=== PATIENT | female | born 1985 | race Caucasian/White ===

== ENCOUNTER 2018-12-03 23:03 | Inpatient (IN) | payer OTHER ==
[~2018-12-03] VITALS: Ht 170.2 cm; Wt 63.0 kg
--- NOTE | 2018-12-04 01:01 | PR ---
[facility] [address] [facility] [place], [place] [address] Signed Progress Notes IP Datetime Report Generated by CPN: 12/04/2018 01:01 PROGRESS NOTES: [id number] Impression: Normal progression of labor Procedures: Artificial ROM Plan: Continue present management; Anticipate Vaginal Delivery VITAL SIGNS: [id number] Vital Signs: Reviewed; Within Normal Limits EXAM: [id number] Dilatation: 9.0 Effacement: 90 Station: 0 Uterine Contractions: every 2-3 minutes MEMBRANES: [id number] Membrane Status: Ruptured Amniotic Fluid Color: Clear ROM Note: AROM without difficulty, small amount fluid seen, head well-applied to cervix Comments: Comfortable with Intrathecal anesthesia Fetus A: [id number] FHR Baseline: 130 Variability: Moderate 6-25bpm Accelerations: 15X15 Decelerations: Variable Presentation: Vertex Fetus B: [id number] Signing Physician: Jimmy Duncan MD Copies: ~ *Electronically Signed* 12/04/18 0101 JIMMY DUNCAN MD PATIENT NAME: YOSVANY RADER PROGRESS NOTE DATE OF : 83 PHYSICIAN: JIMMY DUNCAN MD RPT #: [id number] REPORT IS CONFIDENTIAL AND NOT TO BE RELEASED WITHOUT AUTHORIZATION
--- NOTE | 2018-12-05 11:45 | PR ---
[facility] [address] [facility] [place], [place] [address] Signed PP Progress Notes Datetime Report Generated by CPN: 12/05/2018 11:45 SUBJECTIVE: [id number] Pain: Within normal limits Nausea/Vomiting: Denies Vital Signs: [id number] Vital Signs: Reviewed; Within Normal Limits Notable Details: PP Hgb/Hct = 10.4/31.5 EXAM: [id number] Abdomen/Uterus: Normal Lochia: Normal Extremities: Normal Exam Comments: necjk full ROM, no masses, no point tenderness IMPRESSION/PLAN/PROCEDURES: [id number] Impression: Normal progression Plan: Discharge Procedures: None Progress Notes: Doing well, without complalitn except for some upper neck muscle stiffness/pain. Patient ready to go home. Signing Physician: Jimmy Duncan MD Copies: ~ *Electronically Signed* 12/05/18 1145 JIMMY DUNCAN MD PATIENT NAME: CASEYOSVANY PROGRESS NOTE DATE OF : 83 PHYSICIAN: JIMMY DUNCAN MD RPT #: [id number] REPORT IS CONFIDENTIAL AND NOT TO BE RELEASED WITHOUT AUTHORIZATION
== END 2018-12-05 13:35 | disposition home or self-care (01) | DRG 807 ==
LOC: FBCO 23:03 → FBC 23:56
PROVIDERS: ADMIT Obstetrics & Gynecology
PROC: 10E0XZZ Delivery of Products of Conception, External Approach (ICD-10-PCS; principal; 2018-12-04)
PROC: 0KQM0ZZ Repair Perineum Muscle, Open Approach (ICD-10-PCS; 2018-12-04)
PROC: 10907ZC Drainage of Amniotic Fluid, Therapeutic from Products of Conception, Via Natural or Artificial Opening (ICD-10-PCS; 2018-12-04)
PROC: 00HU33Z Insertion of Infusion Device into Spinal Canal, Percutaneous Approach (ICD-10-PCS; 2018-12-04)
PROC: 3E0R3BZ Introduction of Anesthetic Agent into Spinal Canal, Percutaneous Approach (ICD-10-PCS; 2018-12-04)
DX: O99.02 Anemia complicating childbirth (principal); Z37.0 Single live birth; D64.9 Anemia, unspecified; Z3A.40 40 weeks gestation of pregnancy; O76 Abnormality in fetal heart rate and rhythm complicating labor and delivery; O21.0 Mild hyperemesis gravidarum; O70.1 Second degree perineal laceration during delivery; Z79.899 Other long term (current) drug therapy; Z88.0 Allergy status to penicillin
CPT/HCPCS: 01960; 36415; 85027; J2590; J2795; J7040; J7120